=== PATIENT | male | born 1960 | race Caucasian/White ===

== ENCOUNTER 2022-08-16 18:11 | Inpatient (IN) | payer SELFPAY ==
[2022-08-16 18:50] LABS: #Lymphocytes 1.6 thou/uL (1.20-3.40); #Monocytes 0.6 thou/uL (0.11-0.59); #Neutrophils 11.5 thou/uL (1.40-6.50); %Basophils 0.1 % (0.0-1.0); %Eosinophils 0.1 % (0.0-10.0); %Lymphocytes 11.8 % (21.0-51.0); %Monocytes 4.4 % (0.0-10.0); %Neutrophils 83.6 % (42.0-75.0); Hemoglobin 16.5 g/dL (14.0-18.0); Mean Corpuscular HGB CONC 33.3 g/dL (32.0-36.0); Mean Corpuscular Hemoglobin 32.2 pg (27.0-31.0); Mean Corpuscular Volume 96.7 fl (78.0-98.0); Platelet Count 238 10x3/uL (130-400); RBC Distribution Width 12.5 % (11.5-14.5); Red Blood Cell (RBC) Count 5.11 mill/uL (4.70-6.10); White Blood Cell (WBC) Count 13.8 10x3/uL (4.8-10.8)
[2022-08-16] MEDS ORDERED: Meclizine HCl 25 MG TAB ONE (19:02)
[2022-08-16] MEDS ORDERED: Boostrix 0.5 ML (Tdap) VIAL (>/=7 yrs of age) ONE (19:02)
[2022-08-16 19:12] LABS: ALT (SGPT) 29 U/L (8-55); AST (SGOT) 26 U/L (5-34); Albumin 4.6 g/dL (3.4-4.8); Alcohol Less than 10 mg/dL (Less than 10); Alkaline Phosphatase 102 U/L (40-110); Anion Gap 17 mmol/L (10-20); BUN (Urea Nitrogen) 16 mg/dL (8.4-25.7); Bilirubin, Total 0.3 mg/dL (0.2-1.2); Calc. Creatinine Clearance 0 mL/min (70-130); Calcium 9.8 mg/dL (7.8-10.44); Carbon Dioxide 22 mmol/L (23-31); Chloride 102 mmol/L (98-107); Estimated GFR 99; Globulin 3.5 g/dL (2.4-3.5); Glucose 159 mg/dL (80-115); Potassium 4.5 mmol/L (3.5-5.1); Protein, Total 8.1 g/dL (5.8-8.1); Sodium 136 mmol/L (136-145)
[2022-08-16] MEDS ORDERED: Aspirin Chewable 81 MG TAB ONE (20:09)
[2022-08-16] MEDS ORDERED: Acetaminophen 325 MG TAB PO PRN (20:30)
[2022-08-16] MEDS ORDERED: Ondansetron PF 4 MG/2 ML Vial IVP PRN (20:30)
[2022-08-16] MEDS ORDERED: Ondansetron ODT 4 MG TAB SL PRN (20:30)
[2022-08-16] MEDS ORDERED: Thiamine HCl 200 MG/2 ML VIAL SLOW IVP SCH (21:15)
[2022-08-16] MEDS ORDERED: hydrALAZINE 20 MG/ML VIAL SLOW IVP PRN (21:18)
[2022-08-16 21:56] LABS: Phosphorus 2.5 mg/dL (2.3-4.7)
[2022-08-16] MEDS ORDERED: Lorazepam 1 MG TAB PO PRN (21:57)
[2022-08-16] MEDS ORDERED: Lorazepam 2 MG/ML VIAL IM PRN (21:57)
[2022-08-16] MEDS ORDERED: Thiamine HCl 500 MG, Admixture Fee 1 EACH in Sodium Chloride 0.9% 100 ML IVPB SCH (22:00)
[2022-08-16] MEDS ORDERED: Electrolyte Replacement Protocol 1 EACH FS PRN (22:00)
[2022-08-16] MEDS ORDERED: Meclizine HCl 12.5 MG TAB PO PRN (22:22)
[2022-08-16] MEDS ORDERED: Magnesium 2 GM/50 ML(in water) 2 GM in Premix Bag 1 BAG IVPB SCH (22:30)
[2022-08-16] MEDS: Thiamine HCl 200 MG/2 ML VIAL SLOW IVP SCH (22:34)
[2022-08-16] MEDS: Lorazepam 1 MG TAB PO SCH (22:34)
[2022-08-16 23:44] LABS: #Lymphocytes 2.5 thou/uL (1.20-3.40); #Monocytes 1.3 thou/uL (0.11-0.59); #Neutrophils 10.1 thou/uL (1.40-6.50); %Basophils 0.2 % (0.0-1.0); %Eosinophils 0.1 % (0.0-10.0); %Lymphocytes 18.1 % (21.0-51.0); %Monocytes 9.5 % (0.0-10.0); %Neutrophils 72.1 % (42.0-75.0); Hemoglobin 15.3 g/dL (14.0-18.0); Mean Corpuscular HGB CONC 32.4 g/dL (32.0-36.0); Mean Corpuscular Hemoglobin 31.3 pg (27.0-31.0); Mean Corpuscular Volume 96.6 fl (78.0-98.0); Mean Platelet Volume 9.5 fL (7.4-10.4); Platelet Count 243 10x3/uL (130-400); RBC Distribution Width 12.6 % (11.5-14.5)
[2022-08-17 00:03] VITALS: BMI 30.7
[2022-08-17] MEDS: Lorazepam 1 MG TAB PO SCH ×4 (04:48→20:18)
[2022-08-17 05:53] LABS: Amphetamine Not Detected (NotDetected); Barbiturates Screen Not Detected (NotDetected); Benzodiazepine Screen Detected (NotDetected); Cocaine Metabolite Screen Not Detected (NotDetected); Methadone Not Detected (NotDetected); Methamphetamine Not Detected (NotDetected); Opiate Screen Not Detected (NotDetected); Oxycodone Screen Not Detected (NotDetected); Phencyclidine (PCP) Not Detected (NotDetected); THC/Cannabinoid Screen Not Detected (NotDetected); Tricyclic Screen Not Detected (NotDetected)
[2022-08-17 06:02] LABS: Cardiac Risk 2.1 (Less than 4.5)
[2022-08-17] MEDS ORDERED: Aspirin 81 mg Enteric Coated Tablet PO SCH (09:00)
[2022-08-17] MEDS: Multivit, Therapeutic 1 TAB PO SCH (09:57)
[2022-08-17] MEDS: Folic Acid 1 MG TAB PO SCH (09:57)
[2022-08-17 11:57] LABS: Syphilis Antibody Nonreactive (Nonreactive); Syphilis Antibody Index 0.31 S/CO (<1.00 Non-Reactive)
[2022-08-17] MEDS ORDERED: Atorvastatin Calcium 40 MG TAB PO SCH (21:00)
[2022-08-17] MEDS ORDERED: Lorazepam 1 MG TAB PO PRN (21:57)
[2022-08-17] MEDS: Thiamine HCl 200 MG/2 ML VIAL SLOW IVP SCH (22:24)
[2022-08-18 03:37] VITALS: TEMP 97.7
[2022-08-18] MEDS: Lorazepam 1 MG TAB PO SCH ×3 (06:01→16:09)
[2022-08-18] MEDS: Folic Acid 1 MG TAB PO SCH (08:39)
[2022-08-18] MEDS: Multivit, Therapeutic 1 TAB PO SCH (08:39)
[2022-08-18] MEDS ORDERED: Aspirin 325 mg Enteric Coated Tablet PO SCH (09:00)
[2022-08-18] MEDS ORDERED: Lisinopril 10 MG TAB PO SCH (09:00)
[2022-08-18 16:27] VITALS: BP 151/85
[2022-08-18] MEDS ORDERED: Lorazepam 1 MG TAB PO PRN (21:57)
[2022-08-18] MEDS ORDERED: Lorazepam 0.5 MG TAB PO SCH (22:00)
[2022-08-19] MEDS ORDERED: Lorazepam 0.5 MG TAB PO PRN (21:57)
== END 2022-08-18 17:18 | disposition home or self-care (01) | DRG 149 ==
LOC: ERS 18:11 → NEURO 20:19 → OBSVTOIN 08-17 15:12
PROVIDERS: ADMIT Student in an Organized Health Care Education/Training Program; ATTEND Internal Medicine
DX: R42 Dizziness and giddiness (principal); Z20.822 Contact with and (suspected) exposure to COVID-19; F10.20 Alcohol dependence, uncomplicated; I10 Essential (primary) hypertension; Z79.82 Long term (current) use of aspirin; Z79.899 Other long term (current) drug therapy; Z86.73 Personal history of transient ischemic attack (TIA), and cerebral infarction without residual deficits; Z90.49 Acquired absence of other specified parts of digestive tract; Z87.891 Personal history of nicotine dependence
CPT/HCPCS: 36415; 36416; 70450; 70496; 70498; 70551; 80053; 80061; 80306; 80307; 83735; 84100; 85025; 86780; 90471; 90715; 93005; 93306; 96374; 96375; G0378; J3411; J3475; U0003; U0005